=== PATIENT | female | born 1940 | race Caucasian/White ===

== ENCOUNTER 2018-01-28 10:15 | Outpatient (CLI) | payer MEDICARE ==
--- NOTE | 2018-01-28 13:36 | RAD ---
RADIOGRAPH RIGHT SHOULDER THREE VIEWS: 01/28/2018 HISTORY: A 77-year-old female with M25.511, right shoulder pain, unspecified chronicity. COMPARISON: None. FINDINGS: Mild to moderate DJD at the AC joint and the glenohumeral joint. No dislocation or subluxation. Minong ral head contour is maintained. An approximately 2 x 0.5 cm focus of faint of calcific attenuation a t the acromiohumeral interval. There is a cluster of surgical clips at the right axilla. IMPRESSION: 1. Mild osteoarthrosis. 2. Broad, faint, patchy soft tissue calcification at the acromiohumeral interval. This could either represent HADD (hydroxyapatite deposition disease) or CPPD (calcium pyrophosphate crystal deposition disease). POS: [facility]
--- NOTE | 2018-01-28 13:42 | RAD ---
THREE VIEWS CERVICAL SPINE: INDICATIONS: Radiculopathy. FINDINGS: There is multilevel disk degenerative facet osteoarthritic change. No acute fracture or subluxation is grossly evident. There is mild anterior translation of C3 on C4, with flexion that reduces in the neutral and extension positioning. No additional abnormal translational motion is evident. IMPRESSION: 1. Mild abnormal translational motion at C3-C4. 2. Mild to moderate multilevel spondylosis of the cervical spine. POS: [facility]
--- NOTE | 2018-01-28 14:28 | MRI ---
MRI CERVICAL SPINE NONCONTRAST: 01/28/2018 HISTORY: A 77-year-old female with M54.12, radiculopathy of the cervical region. Cervicalgia radiating the right upper extremity. COMPARISON: None. FINDINGS: No Chiari I malformation. Normal size and signal of cervical spinal cord. No syrinx. Vertebral bod y heights are maintained. Bilateral degenerative facet changes, mild and moderate. The worst levels are on the left, at C4-C5 and at C5-C6, followed by left C7-T1. Disk space narrowing is moderate to severe at C4-C5, moderate at C5-C6, and mild at other levels. Mild degenerative endplate marrow elissa nges, modic type II, at C6-C7. C1-C2: No severe central stenosis. Mild degenerative pseudopannus posterior to the odontoid process , minimally posteriorly deflects the cervicomedullary junction. C2-C3: No significant central stenosis. Mild to moderate right neural foraminal stenosis. No left- sided neural foraminal stenosis. C3-C4: Thickened ligamentum flavum abuts the dorsal surface of the spinal cord. Mild broad-based di sk-osteophytic bar complex. Mild central spinal canal stenosis. Mild bilateral neural foraminal ivet nosis. C4-C5: Broad-based disk-osteophytic bar complex abuts the ventral surface of the spinal cord. Thick ened ligamentum flavum. Moderate central spinal canal stenosis. Bilateral uncinate process osteophy lico. Somewhat severe right neural foraminal stenosis. Moderate to severe left neural foraminal sten osis. C5-C6: Shallow broad-based disk osteophytic bar complex, plus a superimposed tiny central component. Little or no central spinal canal stenosis. Bilateral uncinate process osteophytes. Mild to moder ate right neural foraminal stenosis. Mild left neural foraminal stenosis. C6-C7: Broad-based disk-osteophytic bar complex. Superimposed right paracentral small focal disk-os teophyte complex or disk herniation. Mild central spinal canal stenosis. Small bilateral uncinate p rocess osteophytes. Mild bilateral neural foraminal stenosis, right greater than left. C7-T1: Mildly thickened ligamentum flavum. Minimal broad-based disk- osteophytic bar complex. Mild central spinal canal stenosis. Moderate bilateral neural foraminal stenosis, left greater than righ t. IMPRESSION: 1. Cervical spondylosis, with varying degrees of degenerative disk disease (mild and moderate) and v arying degrees of facet osteoarthrosis (asymmetrically greater on the left than the right). 2. Varying degrees of bilateral neural foraminal stenosis, including moderately severe. 3. No severe central spinal canal stenosis at any level. POS: [facility]
== END 2018-01-28 10:16 | disposition home or self-care (01) ==
LOC: TBSIIMAG 10:15
PROVIDERS: ATTEND Nurse Practitioner Family
DX: M47.22 Other spondylosis with radiculopathy, cervical region (principal); M25.511 Pain in right shoulder; M19.011 Primary osteoarthritis, right shoulder; M99.81 Other biomechanical lesions of cervical region
CPT/HCPCS: 72040; 72141

== ENCOUNTER 2018-03-19 12:35 | Outpatient (CLI) | payer MEDICARE ==
--- NOTE | 2018-03-19 20:28 | EKG ---
Test Reason : Blood Pressure : / mmHG Vent. Rate : 065 BPM Atrial Rate : 065 BPM P-R Int : 174 ms QRS Dur : 074 ms QT Int : 402 ms P-R-T Axes : 057 048 047 degrees QTc Int : 418 ms Normal sinus rhythm Normal ECG When compared with ECG of 15-NOV-2007 15:07, No significant change was found Confirmed by DONALD GARCIA ([id number]) on 03/19/2018 8:28:00 PM Referred By: NITISH Confirmed By:DONALD GARCIA
== END 2018-03-19 12:36 | disposition home or self-care (01) ==
LOC: LABBT 12:35
PROVIDERS: ATTEND Neurological Surgery
DX: Z01.818 Encounter for other preprocedural examination (principal); M54.12 Radiculopathy, cervical region
CPT/HCPCS: 93005; 93010

== ENCOUNTER 2018-03-24 07:11 | Day surgery (SDC) | payer MEDICARE ==
[2018-03-19 13:07] VITALS: BMI 22.8
--- NOTE | 2018-03-24 07:49 | HP ---
HISTORY OF PRESENT ILLNESS: Ms. Olivera is a very pleasant woman, presenting by referral from Dr. Michel koroma's office for evaluation of right-sided C6 as well as C7 radiculopathy, she has had since Jul of this past year. This has also been treated with chiropractics, this ultimately then intens ified again in October and has been persistent since that time. She also has tingling and numbness over the same distributions. She denies any significant weakness that is noticeable, but does have r estricted range of motion to the right and her cervical spine which is pain limiting nature. All thi s is in the setting of an MRI performed at [facility] that reveals bilateral neuroforaminal narrowing mostly in the right at C5-C6 and C6-C7 which I feel match her symptoms rather well. She would like to pursue surgery at this time if possible. PAST MEDICAL HISTORY: Significant for breast carcinoma, hypertension. CURRENT MEDICATIONS: Ativan, metoprolol, aspirin, Viberzi, Zantac, Benadryl. ALLERGIES: CODEINE. PAST SURGICAL HISTORY: Hysterectomy, breast lumpectomy, unspecified back surgery. PHYSICAL EXAMINATION: The patient does display restricted range of motion to the right in her cervic al spine. She is not limited to the left. She has good motor function in the bilateral upper extrem ities with 5/5 strength in all motor movements of the bilateral upper extremities. She has equal and present biceps tendon reflexes bilaterally. There is no sensory disturbance that I can discern. ASSESSMENT: Cervical radiculopathy. PLAN: Dr. Simpson met with the patient, reviewed imaging and ultimately advocated for a C5 through C7 ACDF. He explained to the patient the risks, benefits, and alternatives to the procedure. The patie nt expressed understanding and would like to move forward with surgery as discussed. I do believe th e patient is mentally competent and capable of making medical decisions for herself. We will move fo rward with surgery as planned. Arnaldo Lofton PA-C dictating for Dr. Simpson.
[2018-03-24] MEDS ORDERED: CEFAZOLIN/Water 2 GM/20 ML SYRINGE ONE ×2 (07:52→13:58)
[2018-03-24] MEDS ORDERED: Scopolamine 1.5 mg/72 hour Patch ONE (07:52)
[2018-03-24] MEDS ORDERED: Midazolam HCl 2 mg/2 ml Vial ONE (09:27)
[2018-03-24] MEDS ORDERED: Thrombin 5000 UNITS/5 ML VIAL ONE (09:31)
[2018-03-24] MEDS ORDERED: Fentanyl 100 MCG/2 ML VIAL ONE ×2 (09:33→11:37)
[2018-03-24] MEDS ORDERED: PHENYLEPHRINE-NS 100 MCG/ML 10 ML SYRINGE ONE (10:40)
[2018-03-24] MEDS ORDERED: Esmolol 100 MG/10 ML VIAL ONE (10:40)
[2018-03-24] MEDS ORDERED: Ondansetron HCl/PF 4 MG/2 ML Vial ONE (10:40)
[2018-03-24] MEDS ORDERED: PROPOFOL 200 MG/20 ML VIAL ONE (10:40)
[2018-03-24] MEDS ORDERED: Lidocaine 1% PF 5 ML VIAL ONE (10:40)
[2018-03-24] MEDS ORDERED: Dexamethasone 20 MG/5 ML VIAL ONE (10:40)
[2018-03-24] MEDS ORDERED: Promethazine HCl 25 MG/ML VIAL ONE (12:24)
--- NOTE | 2018-03-24 12:27 | OP ---
DATE OF PROCEDURE: 03/24/2018 SURGEON: Arthur Simpson M.D. PLANT ASSOCIATE: Arnaldo Lofton PA-C INDICATION: Pain. DIAGNOSIS: Cervical radiculopathy. PROCEDURE PERFORMED: Anterior cervical discectomy and fusion C5-C7. ANESTHESIA: General. TECHNIQUE: The patient was brought into the operating room and placed on general anesthesia. She wa s placed on the table in supine position. A transverse incision was planned over the lateral aspect of the neck on the right. After prepping and draping and after an appropriate operative pause, the i ncision was created. The underlying platysma muscle was incised. A blunt tissue plane anterior to t he sternocleidomastoid muscle was used to gain access to the prevertebral space. Self-retaining retr actors were placed in the wound for optimal exposure. After confirming the appropriate level, serum fluoroscopy and annulotomy was performed at the C6-7 disk space. All disk material as well as anteri or and posterior osteophytes were removed. After complete decompression, a 6 mm lordotic PEEK cage p acked with allograft and autograft material was placed in the interbody space. We then redirected ou r attention to the level above at C5-6 where again an annulotomy was performed. All disk material as well as anterior and posterior osteophytes were removed. After complete decompression, a 5 mm lordo tic PEEK cage packed with allograft and autograft material was placed in the interbody space. An ant erior cervical plate was then fashioned to the front of the spine and secured with a total of 6 screw s. Midline and lateral structures were inspected and found to be free from significant trauma. The wound was irrigated. Hemostasis was maintained throughout. The wound was then closed in anatomic la yers and a pressure dressing was applied. There were no known procedural complications.
[2018-03-24] MEDS ORDERED: Cepastat Lozenges 1 LOZ PO ONE (14:15)
== END 2018-03-24 14:45 | disposition home or self-care (01) ==
LOC: SDC 07:11
PROVIDERS: ATTEND Neurological Surgery
PROC: 0RG20A0 Fusion of 2 or more Cervical Vertebral Joints with Interbody Fusion Device, Anterior Approach, Anterior Column, Open Approach (ICD-10-PCS; principal; 2018-03-24)
DX: M54.12 Radiculopathy, cervical region (principal); I10 Essential (primary) hypertension; Z79.82 Long term (current) use of aspirin; Z79.899 Other long term (current) drug therapy; Z98.890 Other specified postprocedural states; Z88.5 Allergy status to narcotic agent
CPT/HCPCS: 20930; 20936; 22551; 22552; 22853 ×2; 76001; 96374 ×2; C1713; C1776; J1100; J2001; J2250; J2405; J2550; J2704; J3010

== ENCOUNTER 2018-05-15 10:33 | Outpatient (CLI) | payer MEDICARE ==
--- NOTE | 2018-05-15 13:15 | RAD ---
THREE VIEWS CERVICAL SPINE: Indication: Post-operative cervical spine with radiculopathy and neck pain. Comparison: 01-28-18 FINDINGS: Since the comparison study there has been interval performance of an ACDF spanning C5 through C7. The ACDF plate and interbody cages project in the expected position. Spinal alignment is preserved. Ther e is slight anterior translation of C7 on T1, stable. Prevertebral soft tissues are within normal santos its. The lateral masses are symmetric. IMPRESSION: 1. Post-operative cervical spine. 2. Stable slight anterior translation of C7 on T1. POS: [facility]
== END 2018-05-15 10:34 | disposition home or self-care (01) ==
LOC: TBSIIMAG 10:33
PROVIDERS: ATTEND Neurological Surgery
DX: M54.12 Radiculopathy, cervical region (principal); Z98.1 Arthrodesis status
CPT/HCPCS: 72040

== ENCOUNTER 2018-08-05 10:19 | Outpatient (CLI) | payer MEDICARE | END 2018-08-05 10:20 | disposition home or self-care (01) | LOC: BICMAMMO 10:19 | PROVIDERS: ATTEND Family Medicine | DX: Z12.31 Encounter for screening mammogram for malignant neoplasm of breast (principal); Z85.3 Personal history of malignant neoplasm of breast | CPT/HCPCS: 77063; 77067 ==

== ENCOUNTER 2018-08-12 12:51 | Outpatient (CLI) | payer MEDICARE ==
--- NOTE | 2018-08-12 14:43 | RAD ---
RIGHT SHOULDER THREE VIEWS: History: Right shoulder pain. FINDINGS: The bones are demineralized. There are arthritic changes of the AC and glenohumeral joints and a suba cromial spur. Surgical clips are seen in the right axilla. IMPRESSION: Arthritic changes of the shoulder with a fairly prominent subacromial spur. POS: [facility]
--- NOTE | 2018-08-12 15:49 | CT ---
NONCONTRAST CT CERVICAL SPINE: Date: 08/12/18 HISTORY: Right shoulder pain and neck pain. TECHNIQUE: Contiguous axial CT images are obtained through the cervical spine from the skull base to the level o f the T3 vertebral body. Sagittal and coronal reformatted images are provided. FINDINGS: Postsurgical changes related to anterior cervical fusion are noted. Anterior plate and screws transfi x the C5-6 and C6-7 levels with intradiscal prosthesis present at these levels. There are scattered f acet degenerative changes seen within the cervical spine. There is mild posterior osteophyte formatio n seen at the C6-7 level. However, there is no significant narrowing of the central spinal canal or l eft neural foramen. There is mild right-sided neural foraminal narrowing due to bony encroachment. At the C4-5 level, there is mild facet hypertrophic changes and posterior osteophyte formation which does result in effacement of the ventral subarachnoid space and mild bilateral neural foraminal narro wing. Remaining levels of the cervical spine demonstrate no significant bony encroachment on the cent ral spinal canal or neural foramina. There is biapical pleural and parenchymal scarring present. Prevertebral soft tissues are within normal limits. Vascular calcifications are seen in the carotid arteries. Prevertebral soft tissues are within normal limits. Calcifications seen in the region of the palatine tonsils bilaterally, likely related to prior inflammatory process. IMPRESSION: 1. Postsurgical changes cervical spine with anterior fusion of C5-C7 levels. Mild degenerative sales es are seen at the C4-5 level and at the C6-7 level as described above. 2. No fracture or subluxation involving the cervical spine. POS: [facility]
== END 2018-08-12 12:52 | disposition home or self-care (01) ==
LOC: TBSIIMAG 12:51
PROVIDERS: ATTEND Neurological Surgery
DX: M47.22 Other spondylosis with radiculopathy, cervical region (principal); M25.511 Pain in right shoulder; M99.81 Other biomechanical lesions of cervical region; M25.78 Osteophyte, vertebrae; M13.811 Other specified arthritis, right shoulder; M75.91 Shoulder lesion, unspecified, right shoulder; Z98.1 Arthrodesis status
CPT/HCPCS: 72125

== ENCOUNTER 2019-05-06 09:48 | Observation (INO) | payer MEDICARE ==
[2019-05-06 10:35] LABS: #Basophils 0.1 thou/uL (0.0-0.2); #Monocytes 0.7 thou/uL (0.11-0.59); #Neutrophils 8.7 thou/uL (1.40-6.50); %Basophils 0.5 % (0.0-1.0); %Eosinophils 0.3 % (0.0-10.0); %Lymphocytes 9.1 % (21.0-51.0); %Monocytes 6.7 % (0.0-10.0); %Neutrophils 83.3 % (42.0-75.0); Hemoglobin 13.5 g/dL (12.0-16.0); Mean Corpuscular HGB CONC 32.9 g/dL (32.0-36.0); Mean Corpuscular Hemoglobin 29.8 pg (27.0-31.0); Mean Corpuscular Volume 90.6 fL (78.0-98.0); Mean Platelet Volume 6.8 fL (7.4-10.4); Platelet Count 251 thou/uL (130-400); RBC Distribution Width 11.7 % (11.5-14.5); Red Blood Cell (RBC) Count 4.51 mill/uL (4.20-5.40); White Blood Cell (WBC) Count 10.5 thou/uL (4.8-10.8)
[2019-05-06 10:58] LABS: ALT (SGPT) 15 U/L (8-55); AST (SGOT) 17 U/L (5-34); Albumin 4.4 g/dL (3.4-4.8); Alkaline Phosphatase 70 U/L (40-150); Anion Gap 12 mmol/L (10-20); BUN (Urea Nitrogen) 8 mg/dL (9.8-20.1); Bilirubin, Total 0.7 mg/dL (0.2-1.2); Calc. Creatinine Clearance 0 mL/min (70-130); Calcium 9.7 mg/dL (7.8-10.44); Carbon Dioxide 29 mmol/L (23-31); Chloride 100 mmol/L (98-107); Estimated GFR-MDRD 68; Globulin 3.7 g/dL (2.4-3.5); Glucose 108 mg/dL (83-110); Potassium 3.8 mmol/L (3.5-5.1); Protein, Total 8.1 g/dL (6.0-8.3); Sodium 137 mmol/L (136-145)
[2019-05-06] MEDS ORDERED: metroNIDAZOLE 500 MG/100 ML BAG ONE (11:59)
--- NOTE | 2019-05-06 12:01 | CT ---
ABDOMEN CT WITH CONTRAST PELVIC CT WITH CONTRAST: Date: 05/06/19 HISTORY: Breast cancer. Hysterectomy. Abdominal pain. COMPARISON: 01/29/19. TECHNIQUE: Abdomen and pelvis CT performed with IV contrast. Enteric contrast not administered. FINDINGS: ABDOMEN CT: Lung bases are clear. Heart size is normal. No significant pericardial fluid. The descending thoracic aorta and abdominal a etta demonstrate atherosclerosis. No aneurysm. Gallbladder is unremarkable. Liver, spleen, pancreas, and adrenal glands have appropriate attenuation and enhancement. No gastrohepatic, retrocrural, or periportal lymphadenopathy. No mesenteric mass, lymphadenopathy, or free air. Symmetric enhancement of the kidneys. Bilaterally, no obstructive uropathy. Limited evaluation of the alimentary canal by lack of oral contrast. Gastric mucosa, duodenum, and multiple normal caliber small bowel loops are identified. Ileocecal willian ction is normal. Normal caliber appendix. There is long segment mucosal thickening involving the desc ending colon and sigmoid colon. Correlate for an infectious inflammatory process. Diverticula are not ed. However, diverticulitis is less favored given the long segment of inflammatory change. Ischemic b owel is a consideration, though less favored given what would be involvement of the SMA as well as th e BERRY distribution. CT PELVIS: Hysterectomy changes. No pelvic mass, lymphadenopathy, free air, or free fluid. Urinary bladder is unremarkable. No lytic or blastic lesions in the osseous structures. IMPRESSION: Long segment mucosal thickening involving the majority of the left hemicolon. Distribution favors an infectious or inflammatory process. Though there are diverticula, diverticulitis is less favored give n long segment distribution. As a conservative measure, follow-up colonoscopy is recommended once aga in inflammation resolves. POS: [facility]
[2019-05-06 13:40] VITALS: BMI 23.5
[2019-05-06] MEDS ORDERED: Ondansetron PF 4 MG/2 ML Vial IVP PRN (13:51)
[2019-05-06] MEDS ORDERED: Ondansetron ODT 4 MG TAB PO PRN (13:51)
[2019-05-06] MEDS ORDERED: Loperamide HCl 2 MG CAP PO PRN (13:51)
[2019-05-06] MEDS: Sodium Chloride 0.9% 1,000 ML IV SCH (14:16)
[2019-05-06 15:58] LABS: Hemoglobin 13.7 g/dL (12.0-16.0); Platelet Count 222 thou/uL (130-400)
[2019-05-06] MEDS: Acetaminophen 325 MG TAB PO PRN (16:33)
[2019-05-06] MEDS ORDERED: metroNIDAZOLE 500 MG in Premix Bag 1 BAG IVPB SCH (20:00)
[2019-05-06] MEDS: Lorazepam 0.5 MG TAB PO SCH (21:04)
[2019-05-07] MEDS: Acetaminophen 325 MG TAB PO PRN ×2 (01:01→22:28)
[2019-05-07] MEDS: Sodium Chloride 0.9% 1,000 ML IV SCH (01:03)
[2019-05-07 05:52] LABS: #Lymphocytes 1.2 thou/uL (1.20-3.40); #Monocytes 0.8 thou/uL (0.11-0.59); #Neutrophils 8.6 thou/uL (1.40-6.50); %Basophils 0.1 % (0.0-1.0); %Eosinophils 0.4 % (0.0-10.0); %Monocytes 7.5 % (0.0-10.0); %Neutrophils 81.1 % (42.0-75.0); Hemoglobin 11.8 g/dL (12.0-16.0); Mean Corpuscular HGB CONC 33.2 g/dL (32.0-36.0); Mean Corpuscular Hemoglobin 30.6 pg (27.0-31.0); Mean Corpuscular Volume 92.1 fL (78.0-98.0); Platelet Count 206 thou/uL (130-400); RBC Distribution Width 11.7 % (11.5-14.5); Red Blood Cell (RBC) Count 3.87 mill/uL (4.20-5.40); White Blood Cell (WBC) Count 10.6 thou/uL (4.8-10.8)
[2019-05-07 06:09] LABS: Anion Gap 12 mmol/L (10-20); BUN (Urea Nitrogen) 5 mg/dL (9.8-20.1); Calc. Creatinine Clearance 70 mL/min (70-130); Calcium 8.7 mg/dL (7.8-10.44); Carbon Dioxide 21 mmol/L (23-31); Chloride 106 mmol/L (98-107); Estimated GFR-MDRD 88; Glucose 99 mg/dL (83-110); Potassium 3.4 mmol/L (3.5-5.1); Sodium 136 mmol/L (136-145)
[2019-05-07] MEDS: Bupropion 150 MG XL TAB PO SCH (08:47)
[2019-05-07] MEDS ORDERED: Zolpidem Tartrate 5 MG TAB PO PRN (09:30)
--- NOTE | 2019-05-07 10:04 | PRG ---
DATE OF SERVICE: 05/07/2019 SUBJECTIVE: Ms. Olivera is feeling better. She is having less abdominal pain. No further blood per bowel movement is noted, although she still noted some slight nausea at times. OBJECTIVE: VITAL SIGNS: Temperature 98.1, blood pressure 130/64. LUNGS: Clear. HEART: Reveals no murmur. ABDOMEN: Soft. There is still some left lower quadrant tenderness without rebound or guarding noted. LABORATORY DATA: Hemoglobin is 11.8, hematocrit 35.7, and white blood count 10.6. Sodium 136, potassium 3.4, chloride 106, CO2 of 21, and BUN 6.5. IMPRESSION: Lower gastrointestinal bleed probably secondary to diverticulitis of the colon. PLAN: We will Hep-Lock IV. We will advance diet to regular diet. I do not see need for colonoscopy, but would like to keep one more day for further IV antibiotic therapy. Job ID: [id number]
[2019-05-07] MEDS: Lorazepam 0.5 MG TAB PO SCH (21:04)
[2019-05-08 05:15] LABS: #Eosinphils 0.1 thou/uL (0.0-0.7); #Lymphocytes 1.4 thou/uL (1.20-3.40); #Monocytes 0.8 thou/uL (0.11-0.59); #Neutrophils 5.7 thou/uL (1.40-6.50); %Basophils 0.5 % (0.0-1.0); %Eosinophils 1.6 % (0.0-10.0); %Monocytes 9.5 % (0.0-10.0); %Neutrophils 70.5 % (42.0-75.0); Hemoglobin 12.5 g/dL (12.0-16.0); Mean Corpuscular HGB CONC 34.2 g/dL (32.0-36.0); Mean Corpuscular Hemoglobin 30.9 pg (27.0-31.0); Mean Corpuscular Volume 90.4 fL (78.0-98.0); Mean Platelet Volume 6.7 fL (7.4-10.4); Platelet Count 234 thou/uL (130-400); RBC Distribution Width 11.7 % (11.5-14.5); Red Blood Cell (RBC) Count 4.03 mill/uL (4.20-5.40)
[2019-05-08 07:44] VITALS: BP 160/75; TEMP 98.4
--- NOTE | 2019-05-08 08:14 | HP ---
HISTORY OF PRESENT ILLNESS: The patient is an 78-year-old female who presented to the emergency room complaining of lower abdominal pain associated with rectal bleeding. She has been these symptoms now since last night. There has been no nausea, vomiting. No fever has been noted. She has noted bleeding that she says it has become a little bit more profuse bleeding over the last 8 hours. She has noted some lower abdominal pain, some looseness to her bowel movement. No trauma has been noted. Otherwise, she has been resting comfortably. She underwent CT scan of the abdomen here at the hospital. CT scan of the abdomen reveals some inflammatory changes involving the descending colon, sigmoid colon. She does have a history of diverticular disease of the colon although it appears that this is not related to diverticulitis. She has been resting comfortably, otherwise. She has no prior history of significant bowel issues. Her last colonoscopy was done in 2013, which did reveal diverticular disease of the colon and polyps. Otherwise, no other medical complaints are noted. ALLERGIES: SHE IS ALLERGIC TO CODEINE. PAST SURGICAL HISTORY: Positive for hysterectomy and lumpectomy. MEDICAL HISTORY: Significant for breast cancer, hypertension, irritable bowel disease. CURRENT MEDICATIONS: 1. Aspirin 81 mg daily. 2. Bupropion 150 mg daily. 3. Vitamin E 400 units daily. 4. Lactobacillus one capsule daily. 5. B12 2500 mcg daily. 6. Vitamin D3 4000 units daily. 7. Vitamin C 1000 mg daily. 8. Metoprolol 12.5 mg p.o. q.a.m. 9. Lorazepam 1 mg at bedtime. 10. Viberzi 75 mg as needed for irritable bowel syndrome. SOCIAL/PERSONAL HISTORY: She is a . She does not smoke and does not drink alcohol. She has recently been going through some tougher time with recent of a son. REVIEW OF SYSTEMS: GI: Positive as above. : Negative. CARDIOVASCULAR: Otherwise negative. NEUROLOGIC: Otherwise negative. PHYSICAL EXAMINATION: VITAL SIGNS: Temperature 98.0, pulse 86, respirations 16, O2 saturation 96%, BP 129/62. GENERAL: She is alert and active, in no acute distress. NECK: Supple. Full range of motion. No masses. No bruits auscultated. Thyroid, midline without thyromegaly or thyroid masses. LUNGS: Clear. HEART: Reveals a regular rate and rhythm. No murmurs, gallops, or rubs. ABDOMEN: Soft. There is some left lower quadrant tenderness without rebound or guarding. The bowel sounds are present and active. No hepatosplenomegaly is noted. EXTREMITIES: No clubbing, edema, or cyanosis noted. LABORATORY DATA: Her white blood count is 10.5, hemoglobin 13.5, hematocrit 40.9. Sodium 137, potassium 3.8, chloride 100, CO2 of 29, BUN 8, creatinine 0.81. CT scan is noted in the body of the report. There is some inflammation in the descending area of the colon, unsure that represents diverticulitis inflammation, possible ischemic bowel. IMPRESSION: An 78-year-old female with rectal bleeding, possibly secondary to colonic inflammation, possibly represent diverticulitis versus ischemic bowel. Doubt ischemic bowel due to minimal symptoms she is having seem to be more consistent with inflammation related diverticular disease of colon. PLAN: The patient has been placed in observation. She will receive IV Levaquin, IV Flagyl. She has already done in the ER. We will get serial H and Hs. If needed, we will get GI consult. I do not think we will need it at this time. The patient has been informed of the findings and need for observation. Job ID: [id number]
[2019-05-08] MEDS: Bupropion 150 MG XL TAB PO SCH (09:00)
--- NOTE | 2019-05-08 10:36 | PRG ---
DATE OF SERVICE: 05/08/2019 SUBJECTIVE: Ms. Olivera is feeling much better. She has less pain. She has had no further bleeding per rectum. OBJECTIVE: VITAL SIGNS: BP 134/63, temperature 98.7, pulse 90, and O2 saturations 95%. ABDOMEN: Soft. There is minimal tenderness noted in left lower quadrant area. No rebound or guarding. LABORATORY DATA: Her hemoglobin is 12.5 and hematocrit 36.5. IMPRESSION: Lower gastrointestinal bleed probably secondary to diverticulitis/colitis. PLAN: Discharged home on Levaquin and Flagyl today. Follow up with me in 1 week. Job ID: [id number]
--- NOTE | 2019-05-08 12:21 | DIS ---
DATE OF ADMISSION: 05/06/2019 DATE OF DISCHARGE: 05/08/2019 DISCHARGE DIAGNOSES: 1. Lower gastrointestinal bleeding. 2. Diverticulitis. HOSPITAL SUMMARY: The patient is an 78-year-old female, who presented to the emergency room with lower abdominal pain associated with some left lower quadrant pain and rectal bleeding. She was seen and evaluated in the ER. Abdominopelvic CT scan revealed some inflammation of her lower intestinal wall. This was possibly related to diverticulitis versus ischemic bowel. The patient was subsequently admitted to the hospital and given on IV antibiotics for diverticular disease of colon. Serial H and H's were done. She had no significant further bleeding noted. Tolerating all p.o. intake. By 05/08/2019, she was doing well. She was able to be discharged home on her home medicines. In addition, she will be placed on Levaquin 500 mg daily and metronidazole 500 mg b.i.d. She will follow up in 1 week. Job ID: [id number]
--- NOTE | 2019-05-10 01:07 | EKG ---
Test Reason : Blood Pressure : / mmHG Vent. Rate : 082 BPM Atrial Rate : 082 BPM P-R Int : 164 ms QRS Dur : 074 ms QT Int : 392 ms P-R-T Axes : 056 036 043 degrees QTc Int : 457 ms Normal sinus rhythm Nonspecific ST abnormality Abnormal ECG Confirmed by ELEUTERIO SAMAYOA ([id number]), editor sound MERE SERRATO ([id number]) on 05/10/2019 1:06:45 AM Referred By: Confirmed By:ELEUTERIO SAMAYOA
== END 2019-05-08 09:00 | disposition home or self-care (01) ==
LOC: ERS 09:48 → 2SW 13:35
PROVIDERS: ADMIT Family Medicine; ATTEND Family Medicine
DX: K57.33 Diverticulitis of large intestine without perforation or abscess with bleeding (principal); I10 Essential (primary) hypertension; K58.9 Irritable bowel syndrome, unspecified; Z88.5 Allergy status to narcotic agent; Z79.82 Long term (current) use of aspirin; Z79.899 Other long term (current) drug therapy
CPT/HCPCS: 74177; 80048; 80053; 85014; 85018; 85025 ×3; 85049; 86850; 86900; 86901; 93005; 96361 ×2; 96365; 96366 ×2; 96367; 99285; G0378 ×2; 36415; J1956

== ENCOUNTER 2019-08-06 08:37 | Outpatient (CLI) | payer MEDICARE ==
--- NOTE | 2019-08-06 09:19 | ULT ---
US Gallbladder RUQ: 08/06/2019 12:00 AM CLINICAL HISTORY: Epigastric abdominal pain. STUDY: Limited right upper quadrant ultrasound of abdomen. COMPARISON: 11/16/2007 FINDINGS: Liver: Size: Normal. Echogenicity: Normal. Contour: Smooth. Mass: None. Bile ducts: No intrahepatic or extrahepatic biliary dilatation. Common bile duct measures 3 mm. Gallbladder: Cholelithiasis. Pancreas: Head, body, and tail appear normal. Right kidney: No pelvicalyceal dilatation. Right kidney measuring 8.5 cm in length. IMPRESSION: Cholelithiasis
== END 2019-08-06 08:38 | disposition home or self-care (01) ==
LOC: ULT 08:37
PROVIDERS: ATTEND Family Medicine
DX: R10.13 Epigastric pain (principal); K80.20 Calculus of gallbladder without cholecystitis without obstruction
CPT/HCPCS: 76705

== ENCOUNTER 2019-08-18 12:03 | Outpatient (CLI) | payer MEDICARE ==
[2019-08-18 13:40] LABS: #Eosinphils 0.1 thou/uL (0.0-0.7); #Lymphocytes 1.1 thou/uL (1.20-3.40); #Monocytes 0.5 thou/uL (0.11-0.59); #Neutrophils 4.2 thou/uL (1.40-6.50); %Basophils 0.2 % (0.0-1.0); %Eosinophils 0.9 % (0.0-10.0); %Lymphocytes 18.4 % (21.0-51.0); %Monocytes 8.5 % (0.0-10.0); Mean Corpuscular Hemoglobin 31.2 pg (27.0-31.0); Mean Corpuscular Volume 91.8 fL (78.0-98.0); Platelet Count 273 thou/uL (130-400); RBC Distribution Width 11.4 % (11.5-14.5); Red Blood Cell (RBC) Count 4.17 mill/uL (4.20-5.40); White Blood Cell (WBC) Count 5.8 thou/uL (4.8-10.8)
[2019-08-18 14:03] LABS: ALT (SGPT) 12 U/L (8-55); AST (SGOT) 18 U/L (5-34); Albumin 4.2 g/dL (3.4-4.8); Alkaline Phosphatase 62 U/L (40-110); Anion Gap 14 mmol/L (10-20); BUN (Urea Nitrogen) 15 mg/dL (9.8-20.1); Bilirubin, Direct 0.1 mg/dL (0.1-0.3); Bilirubin, Total 0.3 mg/dL (0.2-1.2); Calc. Creatinine Clearance 0 mL/min (70-130); Calcium 9.4 mg/dL (7.8-10.44); Carbon Dioxide 25 mmol/L (23-31); Chloride 101 mmol/L (98-107); Estimated GFR-MDRD 64; Glucose 93 mg/dL (83-110); Potassium 3.7 mmol/L (3.5-5.1); Protein, Total 7.9 g/dL (6.0-8.3); Sodium 136 mmol/L (136-145)
== END 2019-08-18 12:04 | disposition home or self-care (01) ==
LOC: LABBT 12:03
PROVIDERS: ATTEND Surgery
DX: Z01.818 Encounter for other preprocedural examination (principal); K80.80 Other cholelithiasis without obstruction
CPT/HCPCS: 80048; 80076; 85025; 93005; 93010

== ENCOUNTER 2019-08-25 13:15 | Outpatient (CLI) | payer MEDICARE ==
--- NOTE | 2019-08-25 14:46 | MMO ---
Bilateral MAMMO Bilat Screen [facility]. CLINICAL HISTORY: Patient is 78 years old and is seen for screening. The patient has no family history of breast cancer. 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 VIEWS: The views performed were: bilateral craniocaudal with tomosynthesis and bilateral mediolateral oblique with tomosynthesis. FILMS COMPARED: The present examination has been compared to prior imaging studies performed at [facility] on 06/17/2015, 07/05/2016, 07/31/2017 and 08/05/2018. This study has been interpreted with the assistance of computer-aided detection. MAMMOGRAM FINDINGS: There are scattered fibroglandular densities. There are stable benign appearing calcifications seen in both breasts. There are no suspicious masses, suspicious calcifications, or new areas of architectural distortion. IMPRESSION: THERE IS NO MAMMOGRAPHIC EVIDENCE OF MALIGNANCY. A ROUTINE FOLLOW-UP MAMMOGRAM IN 1 YEAR IS RECOMMENDED. THE RESULTS OF THIS EXAM WERE SENT TO THE PATIENT. ACR BI-RADS Category 2 - Benign finding MAMMOGRAPHY NOTE: 1. A negative mammogram report should not delay a biopsy if a dominant of clinically suspicious mass is present. 2. Approximately 10% to 15% of breast cancers are not detected by mammography. 3. Adenosis and dense breasts may obscure an underlying neoplasm. Reported by: JESSICA MORENO MD Electonically Signed: [id number]
== END 2019-08-25 13:16 | disposition home or self-care (01) ==
LOC: BICMAMMO 13:15
PROVIDERS: ATTEND Family Medicine
DX: Z12.31 Encounter for screening mammogram for malignant neoplasm of breast (principal); Z98.890 Other specified postprocedural states
CPT/HCPCS: 77063; 77067

== ENCOUNTER 2019-08-27 07:05 | Day surgery (SDC) | payer MEDICARE ==
[2019-08-18 12:29] VITALS: BMI 22.1
[2019-08-27] MEDS ORDERED: Bupivacaine/Epinephrine 0.25% 30 ML VIAL ONE (08:05)
[2019-08-27] MEDS ORDERED: Scopolamine 1.5 mg/72 hour Patch ONE (08:20)
[2019-08-27] MEDS ORDERED: Fentanyl 100 MCG/2 ML VIAL ONE ×2 (08:27→09:50)
[2019-08-27] MEDS ORDERED: Ondansetron PF 4 MG/2 ML Vial ONE (09:51)
[2019-08-27] MEDS ORDERED: Acetaminophen 500 MG TAB ONE (11:01)
--- NOTE | 2019-08-27 15:04 | OP ---
DATE OF PROCEDURE: 08/27/2019 PREOPERATIVE DIAGNOSIS: Symptomatic gallstones. POSTOPERATIVE DIAGNOSIS: Symptomatic gallstones. PROCEDURE PERFORMED: Laparoscopic cholecystectomy. ANESTHESIA: General. ESTIMATED BLOOD LOSS: Minimal. COMPLICATIONS: None. SPECIMEN: Gallbladder. FINDINGS: Chronic cholecystitis. PROCEDURE IN DETAIL: The patient was taken to the operating room and laid supine on the operating room table. After general anesthetic was obtained, the abdomen was prepped and draped in a sterile fashion. A curved incision was made below the umbilicus. Cautery was used to dissect down to the umbilical fascia. Umbilical fascia was incised and held up using a Zeynep. The abdominal cavity was entered using a Beata clamp. Holding stitch of Vicryl was placed on each side of the fascia. Black trocar was placed. High-flow pneumoperitoneum was obtained. An upper midline 5 mm port and 2 right upper quadrant 5 mm ports were placed under direct camera visualization. The gallbladder was retracted from the gallbladder fossa. The peritoneum of the gallbladder was opened anteriorly and posteriorly. The critical view triangle was seen showing only the cystic duct and cystic artery branching from medial to lateral. There were no other branching structures. Two clips were placed proximally on the cystic duct and one laterally. It was cut using laparoscopic scissors. The cystic artery was taken in the same way. Electrocautery was then used to dissect the gallbladder out of the gallbladder fossa. The gallbladder was placed in an Endo catch bag and brought out through the Black. There was no bleeding or bile in the liver bed. The cystic duct stump and cystic artery stump were intact, without evidence of extravasation or bleeding. All port sites were infiltrated using local anesthesia. All ports were removed under camera visualization. Pneumoperitoneum was let down. The Vicryl was used to close the fascial defect below the umbilicus. All incisions were irrigated and closed using 4-0 Monocryl and Dermabond. The patient was en route to Recovery in stable condition. All instrument counts, needle counts and lap counts were correct. Job ID: [id number]
== END 2019-08-27 11:30 | disposition home or self-care (01) ==
LOC: SDC 07:05
PROVIDERS: ATTEND Surgery
PROC: 0FT44ZZ Resection of Gallbladder, Percutaneous Endoscopic Approach (ICD-10-PCS; principal; 2019-08-27)
DX: K80.11 Calculus of gallbladder with chronic cholecystitis with obstruction (principal); I10 Essential (primary) hypertension; E78.5 Hyperlipidemia, unspecified; F32.9 Major depressive disorder, single episode, unspecified; Z79.82 Long term (current) use of aspirin; Z79.899 Other long term (current) drug therapy; Z88.5 Allergy status to narcotic agent
CPT/HCPCS: 88304; J0690; J2405; J3010

== ENCOUNTER 2019-10-06 15:32 | Outpatient (CLI) | payer MEDICARE ==
--- NOTE | 2019-10-06 15:52 | RAD ---
EXAM: XR Abdomen 2 View PROVIDED CLINICAL HISTORY: Gallstones COMPARISON: None FINDINGS: Visualized lung bases are clear. Bowel gas pattern is nonspecific. Surgical clips overlie the right u pper quadrant. Vascular calcifications and phleboliths overlie the pelvis. Degenerative changes are seen in the spine. IMPRESSION: 1. Nonspecific bowel gas pattern. 2. Surgical clips overlie the right upper quadrant.
== END 2019-10-06 15:33 | disposition home or self-care (01) ==
LOC: RAD 15:32
PROVIDERS: ATTEND Surgery
DX: K80.20 Calculus of gallbladder without cholecystitis without obstruction (principal); Z98.890 Other specified postprocedural states
CPT/HCPCS: 74019

== ENCOUNTER 2020-08-25 11:59 | Outpatient (CLI) | payer MEDICARE ==
--- NOTE | 2020-08-25 14:48 | RAD ---
EXAM: Left rib series with chest x-ray HISTORY: Rib pain COMPARISON: None FINDINGS: Single view of the chest shows a normal sized cardiomediastinal silhouette. Biapical pleur al thickening is present. Increased interstitial markings are seen. There is no evidence of consolidation, mass, or pleural effusion. Hardware seen in the cervical spine. Surgical clips are see n in the right axillary region. Multiple views of the left ribs shows no evidence of displaced rib fracture. No underlying pleural th ickening or pneumothorax are seen. IMPRESSION: 1. No evidence of displaced rib fracture. 2. No evidence of acute cardiopulmonary disease.
== END 2020-08-25 12:00 | disposition home or self-care (01) ==
LOC: BICRAD 11:59
PROVIDERS: ATTEND Family Medicine
DX: R07.81 Pleurodynia (principal)

== ENCOUNTER 2020-09-20 12:59 | Outpatient (CLI) | payer MEDICARE ==
--- NOTE | 2020-09-20 13:45 | MMO ---
Bilateral MAMMO Bilat Screen [facility]. CLINICAL HISTORY: Patient is 79 years old and is seen for screening. The patient has no family history of breast cancer. The patient has a history of malignant (generic) at age 60. 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 VIEWS: The views performed were: bilateral craniocaudal with tomosynthesis and bilateral mediolateral oblique with tomosynthesis. FILMS COMPARED: The present examination has been compared to prior imaging studies performed at [facility] on 07/05/2016, 07/31/2017, 08/05/2018 and 08/25/2019. This study has been interpreted with the assistance of computer-aided detection. MAMMOGRAM FINDINGS: There are scattered fibroglandular densities. There are stable benign appearing calcifications seen in both breasts. There are no suspicious masses, suspicious calcifications, or new areas of architectural distortion. IMPRESSION: THERE IS NO MAMMOGRAPHIC EVIDENCE OF MALIGNANCY. A ROUTINE FOLLOW-UP MAMMOGRAM IN 1 YEAR IS RECOMMENDED. THE RESULTS OF THIS EXAM WERE SENT TO THE PATIENT. ACR BI-RADS Category 2 - Benign finding MAMMOGRAPHY NOTE: 1. A negative mammogram report should not delay a biopsy if a dominant of clinically suspicious mass is present. 2. Approximately 10% to 15% of breast cancers are not detected by mammography. 3. Adenosis and dense breasts may obscure an underlying neoplasm. Reported by: JESSICA MORENO MD Electonically Signed: [id number]
== END 2020-09-20 13:00 | disposition home or self-care (01) ==
LOC: BICMAMMO 12:59
PROVIDERS: ATTEND Family Medicine
DX: Z12.31 Encounter for screening mammogram for malignant neoplasm of breast (principal); Z85.3 Personal history of malignant neoplasm of breast; Z98.890 Other specified postprocedural states
CPT/HCPCS: 77063; 77067

== ENCOUNTER 2021-09-21 11:02 | Outpatient (CLI) | payer MEDICARE | END 2021-09-21 11:03 | disposition home or self-care (01) | LOC: BICMAMMO 11:02 | PROVIDERS: ATTEND Family Medicine | DX: Z12.31 Encounter for screening mammogram for malignant neoplasm of breast (principal); Z85.3 Personal history of malignant neoplasm of breast; Z98.890 Other specified postprocedural states | CPT/HCPCS: 77063; 77067 ==

== ENCOUNTER 2022-10-24 13:19 | Outpatient (CLI) | payer MEDICARE | END 2022-10-24 13:20 | disposition home or self-care (01) | LOC: BICMAMMO 13:19 | PROVIDERS: ATTEND Family Medicine | DX: Z12.31 Encounter for screening mammogram for malignant neoplasm of breast (principal); R92.1 Mammographic calcification found on diagnostic imaging of breast; Z98.890 Other specified postprocedural states | CPT/HCPCS: 77063; 77067 ==

== ENCOUNTER 2023-07-19 11:23 | Inpatient (IN) | payer MEDICARE ==
[2023-07-19 11:39] LABS: #Eosinphils 0.1 thou/uL (0.0-0.7); #Monocytes 0.5 thou/uL (0.11-0.59); #Neutrophils 5.9 thou/uL (1.40-6.50); %Basophils 0.3 % (0.0-1.0); %Eosinophils 0.7 % (0.0-10.0); %Lymphocytes 13.6 % (21.0-51.0); %Monocytes 6.4 % (0.0-10.0); %Neutrophils 78.6 % (42.0-75.0); Hematocrit 42.5 % (36.0-47.0); Hemoglobin 14.1 g/dL (12.0-16.0); Mean Corpuscular HGB CONC 33.2 g/dL (32.0-36.0); Mean Corpuscular Hemoglobin 30.1 pg (27.0-31.0); Mean Corpuscular Volume 90.8 fl (78.0-98.0); Mean Platelet Volume 9.2 fL (7.4-10.4); Platelet Count 241 10x3/uL (130-400); RBC Distribution Width 12.7 % (11.5-14.5); Red Blood Cell (RBC) Count 4.68 mill/uL (4.20-5.40); White Blood Cell (WBC) Count 7.5 10x3/uL (4.8-10.8)
[2023-07-19 11:52] LABS: INR-International Normal Ratio 0.9; Prothrombin Time 12.9 sec (12.0-14.7)
[2023-07-19 11:58] LABS: ALT (SGPT) 13 U/L (8-55); AST (SGOT) 20 U/L (5-34); Albumin 4.5 g/dL (3.4-4.8); Alkaline Phosphatase 69 U/L (40-110); Anion Gap 17 mmol/L (10-20); BUN (Urea Nitrogen) 18 mg/dL (9.8-20.1); Bilirubin, Total 0.4 mg/dL (0.2-1.2); Calc. Creatinine Clearance 0 mL/min (70-130); Calcium 9.9 mg/dL (7.8-10.44); Carbon Dioxide 25 mmol/L (23-31); Chloride 101 mmol/L (98-107); Estimated GFR 66; Glucose 102 mg/dL (83-110); Potassium 4.7 mmol/L (3.5-5.1); Protein, Total 8.5 g/dL (5.8-8.1); Sodium 138 mmol/L (136-145)
[2023-07-19 12:21] LABS: Troponin I 0.011 ng/mL (< 0.028)
[2023-07-19 12:41] LABS: Bacteria/HPF None Seen HPF (None Seen); Bilirubin Negative (Negative); Blood, Urine Negative (Negative); CAUTI Indications for Culture Alt mental st,lethar; Clarity Clear (Clear); Glucose, Urine (Dipstick) Normal (Negative); Ketone, Urine Negative (Negative); Leukocyte Negative Leu/uL (Negative); Nitrite Negative (Negative); Protein, Urine (Dipstick) Negative (Neg-Trace); RBC/HPF 0-3 HPF (0-3); Specific Gravity, Urine 1.011 (1.002-1.036); Squamous Epithelial None Seen HPF (0-3); Urobilinogen Normal mg/dL (Less than 2); WBC/HPF 0-3 HPF (0-3)
[2023-07-19] MEDS ORDERED: Aspirin Chewable 81 MG TAB ONE (12:44)
[2023-07-19 12:50] LABS: Urine Culture Reflex No No
[2023-07-19] MEDS ORDERED: Ondansetron PF 4 MG/2 ML Vial IVP PRN (15:04)
[2023-07-19] MEDS ORDERED: Bisacodyl 5 MG TAB PO PRN (15:04)
[2023-07-19 15:15] VITALS: BMI 24.0
[2023-07-19] MEDS ORDERED: Iopamidol-370 76% 500 ML MDV (1 ML CHARGE) ONE ×2 (15:37)
[2023-07-19] MEDS: Atorvastatin Calcium 40 MG TAB PO SCH (19:57)
[2023-07-19] MEDS ORDERED: Melatonin 3 MG TAB PO SCH (22:00)
[2023-07-19] MEDS: Acetaminophen 325 MG TAB PO PRN (22:03)
[2023-07-20 06:07] LABS: #Eosinphils 0.1 thou/uL (0.0-0.7); #Monocytes 0.7 thou/uL (0.11-0.59); #Neutrophils 5.4 thou/uL (1.40-6.50); %Basophils 0.1 % (0.0-1.0); %Eosinophils 0.8 % (0.0-10.0); %Monocytes 9.4 % (0.0-10.0); %Neutrophils 73.6 % (42.0-75.0); Hematocrit 38.4 % (36.0-47.0); Hemoglobin 12.7 g/dL (12.0-16.0); Mean Corpuscular HGB CONC 33.1 g/dL (32.0-36.0); Mean Corpuscular Hemoglobin 30.2 pg (27.0-31.0); Mean Corpuscular Volume 91.2 fl (78.0-98.0); Mean Platelet Volume 9.4 fL (7.4-10.4); Platelet Count 233 10x3/uL (130-400); RBC Distribution Width 12.8 % (11.5-14.5); Red Blood Cell (RBC) Count 4.21 mill/uL (4.20-5.40); White Blood Cell (WBC) Count 7.3 10x3/uL (4.8-10.8)
[2023-07-20] MEDS ORDERED: Lorazepam 0.5 MG TAB PO PRN (06:10)
[2023-07-20 06:36] LABS: Anion Gap 14 mmol/L (10-20); BUN (Urea Nitrogen) 24 mg/dL (9.8-20.1); Calc. Creatinine Clearance 42 mL/min (70-130); Calcium 9.3 mg/dL (7.8-10.44); Carbon Dioxide 24 mmol/L (23-31); Cardiac Risk 4.3 (Less than 4.5); Chloride 102 mmol/L (98-107); Cholesterol 190 mg/dl (< 200 Desired); Estimated GFR 54; Glucose 112 mg/dL (83-110); HDL Cholesterol 44 mg/dL (>60 Neg Risk); LDL Cholesterol, Calculated 127 mg/dL; Potassium 4.3 mmol/L (3.5-5.1); Sodium 136 mmol/L (136-145); Triglycerides 95 mg/dL (Less than 150)
[2023-07-20] MEDS: Aspirin 81 mg Enteric Coated Tablet PO SCH (09:06)
[2023-07-20] MEDS ORDERED: Diazepam 2 MG TAB PO PRN (10:58)
[2023-07-20] MEDS: Acetaminophen 325 MG TAB PO PRN (13:13)
[2023-07-20] MEDS ORDERED: BuPROPion XL 150 MG ER.TAB PO SCH (17:30)
[2023-07-20] MEDS: Atorvastatin Calcium 40 MG TAB PO SCH (19:50)
[2023-07-20] MEDS: Melatonin 3 MG TAB PO PRN (21:31)
[2023-07-21 05:18] LABS: #Eosinphils 0.1 thou/uL (0.0-0.7); #Monocytes 0.7 thou/uL (0.11-0.59); #Neutrophils 4.4 thou/uL (1.40-6.50); %Basophils 0.2 % (0.0-1.0); %Eosinophils 1.1 % (0.0-10.0); %Lymphocytes 18.8 % (21.0-51.0); %Monocytes 11.3 % (0.0-10.0); %Neutrophils 68.3 % (42.0-75.0); Hematocrit 37.6 % (36.0-47.0); Hemoglobin 12.5 g/dL (12.0-16.0); Mean Corpuscular HGB CONC 33.2 g/dL (32.0-36.0); Mean Corpuscular Hemoglobin 29.7 pg (27.0-31.0); Mean Corpuscular Volume 89.3 fl (78.0-98.0); Mean Platelet Volume 9.5 fL (7.4-10.4); Platelet Count 211 10x3/uL (130-400); RBC Distribution Width 12.8 % (11.5-14.5); Red Blood Cell (RBC) Count 4.21 mill/uL (4.20-5.40); White Blood Cell (WBC) Count 6.5 10x3/uL (4.8-10.8)
[2023-07-21 05:37] LABS: Anion Gap 13 mmol/L (10-20); BUN (Urea Nitrogen) 22 mg/dL (9.8-20.1); Calc. Creatinine Clearance 52 mL/min (70-130); Carbon Dioxide 25 mmol/L (23-31); Chloride 101 mmol/L (98-107); Estimated GFR 68; Glucose 113 mg/dL (83-110); Potassium 3.8 mmol/L (3.5-5.1); Sodium 135 mmol/L (136-145)
[2023-07-21] MEDS ORDERED: Magnevist 469MG/ML 20 ML VIAL ONE (08:59)
[2023-07-21] MEDS ORDERED: CRANBERRY 500 MG PO SCH (09:00)
[2023-07-21] MEDS: Floranex 1 GM Packet PO SCH (09:05)
[2023-07-21] MEDS: Ascorbic Acid 500 mg Chewable Tablet PO SCH (09:05)
[2023-07-21] MEDS: Cholecalciferol 1,000 UNITS (25 MCG) TAB PO SCH (09:06)
[2023-07-21] MEDS: Cyanocobalamin (Vitamin B-12) 1,000 MCG TAB PO SCH (09:06)
[2023-07-21] MEDS: Vitamin E 400 UNITS CAP PO SCH (09:06)
[2023-07-21] MEDS: Aspirin 81 mg Enteric Coated Tablet PO SCH (09:06)
[2023-07-21] MEDS: Atorvastatin Calcium 40 MG TAB PO SCH (20:55)
[2023-07-21] MEDS: Lorazepam 0.5 MG TAB PO SCH (20:55)
[2023-07-21] MEDS: Acetaminophen 325 MG TAB PO PRN (21:40)
[2023-07-21] MEDS: Melatonin 3 MG TAB PO PRN (21:40)
[2023-07-22 05:36] LABS: #Eosinphils 0.1 thou/uL (0.0-0.7); #Monocytes 0.9 thou/uL (0.11-0.59); #Neutrophils 4.2 thou/uL (1.40-6.50); %Basophils 0.3 % (0.0-1.0); %Eosinophils 1.1 % (0.0-10.0); %Lymphocytes 18.4 % (21.0-51.0); %Monocytes 13.5 % (0.0-10.0); %Neutrophils 66.4 % (42.0-75.0); Hematocrit 38.2 % (36.0-47.0); Hemoglobin 12.3 g/dL (12.0-16.0); Mean Corpuscular HGB CONC 32.2 g/dL (32.0-36.0); Mean Corpuscular Hemoglobin 29.8 pg (27.0-31.0); Mean Corpuscular Volume 92.5 fl (78.0-98.0); Mean Platelet Volume 9.3 fL (7.4-10.4); Platelet Count 203 10x3/uL (130-400); RBC Distribution Width 12.7 % (11.5-14.5); Red Blood Cell (RBC) Count 4.13 mill/uL (4.20-5.40); White Blood Cell (WBC) Count 6.4 10x3/uL (4.8-10.8)
[2023-07-22 06:03] LABS: Anion Gap 12 mmol/L (10-20); BUN (Urea Nitrogen) 23 mg/dL (9.8-20.1); Calc. Creatinine Clearance 57 mL/min (70-130); Calcium 9.2 mg/dL (7.8-10.44); Carbon Dioxide 24 mmol/L (23-31); Chloride 106 mmol/L (98-107); Estimated GFR 77; Glucose 102 mg/dL (83-110); Potassium 3.9 mmol/L (3.5-5.1); Sodium 138 mmol/L (136-145)
[2023-07-22] MEDS: Floranex 1 GM Packet PO SCH (09:49)
[2023-07-22] MEDS: Ascorbic Acid 500 mg Chewable Tablet PO SCH (09:49)
[2023-07-22] MEDS: Vitamin E 400 UNITS CAP PO SCH (09:50)
[2023-07-22] MEDS: Cyanocobalamin (Vitamin B-12) 1,000 MCG TAB PO SCH (09:50)
[2023-07-22] MEDS: Aspirin 81 mg Enteric Coated Tablet PO SCH (09:50)
[2023-07-22] MEDS: Lorazepam 0.5 MG TAB PO SCH (09:50)
[2023-07-22] MEDS: Cholecalciferol 1,000 UNITS (25 MCG) TAB PO SCH (09:50)
[2023-07-22 11:38] VITALS: BP 137/84; TEMP 97.8
== END 2023-07-22 15:52 | disposition home or self-care (01) | DRG 65 ==
LOC: ERS 11:23 → 2SW 13:06 → OBSVTOIN 07-21 13:16
PROVIDERS: ADMIT Internal Medicine; ATTEND Internal Medicine
DX: I63.9 Cerebral infarction, unspecified (principal); E87.1 Hypo-osmolality and hyponatremia; I10 Essential (primary) hypertension; E78.5 Hyperlipidemia, unspecified; F41.9 Anxiety disorder, unspecified; F32.A Depression, unspecified; Z88.5 Allergy status to narcotic agent; Z79.899 Other long term (current) drug therapy; Z85.3 Personal history of malignant neoplasm of breast; Z90.710 Acquired absence of both cervix and uterus; Z98.890 Other specified postprocedural states; Z79.82 Long term (current) use of aspirin
CPT/HCPCS: 36415; 36416; 70450; 70496; 70498; 70553; 71045; 80048; 80053; 80061; 81001; 84484; 85025; 85610; 85730; 93005; 93306; 96372; A9579; G0378; J1650; Q9967

== ENCOUNTER 2023-08-13 13:20 | Emergency (ER) | payer MEDICARE, OTHER ==
[~2023-08-13 13:20] MED LIST: Iopamidol-370 76% 500 ML MDV (1 ML CHARGE) ONE
[2023-08-13 13:51] LABS: #Monocytes 0.4 thou/uL (0.11-0.59); #Neutrophils 3.1 thou/uL (1.40-6.50); %Basophils 0.2 % (0.0-1.0); %Eosinophils 0.4 % (0.0-10.0); %Lymphocytes 21.8 % (21.0-51.0); %Monocytes 9.2 % (0.0-10.0); %Neutrophils 68.2 % (42.0-75.0); Hemoglobin 12.7 g/dL (12.0-16.0); Mean Corpuscular HGB CONC 33.4 g/dL (32.0-36.0); Mean Corpuscular Hemoglobin 30.3 pg (27.0-31.0); Mean Corpuscular Volume 90.7 fl (78.0-98.0); Mean Platelet Volume 9.3 fL (7.4-10.4); Platelet Count 237 10x3/uL (130-400); RBC Distribution Width 12.7 % (11.5-14.5); Red Blood Cell (RBC) Count 4.19 mill/uL (4.20-5.40); White Blood Cell (WBC) Count 4.6 10x3/uL (4.8-10.8)
[2023-08-13 14:09] LABS: PTT 29.9 sec (22.9-36.1); Prothrombin Time 13.8 sec (12.0-14.7)
[2023-08-13 14:18] LABS: ALT (SGPT) 14 U/L (8-55); AST (SGOT) 20 U/L (5-34); Albumin 4.6 g/dL (3.4-4.8); Alkaline Phosphatase 66 U/L (40-110); Anion Gap 13 mmol/L (10-20); BUN (Urea Nitrogen) 12 mg/dL (9.8-20.1); Bilirubin, Total 0.3 mg/dL (0.2-1.2); Calc. Creatinine Clearance 0 mL/min (70-130); Calcium 9.9 mg/dL (7.8-10.44); Carbon Dioxide 26 mmol/L (23-31); Chloride 101 mmol/L (98-107); Estimated GFR 69; Globulin 3.6 g/dL (2.4-3.5); Glucose 121 mg/dL (83-110); Magnesium 2.1 mg/dL (1.6-2.6); Potassium 3.9 mmol/L (3.5-5.1); Protein, Total 8.2 g/dL (5.8-8.1); Sodium 136 mmol/L (136-145)
[2023-08-13 14:22] LABS: Troponin I Less than 0.010 ng/mL (< 0.028)
[2023-08-13 14:47] LABS: Bacteria/HPF None Seen HPF (None Seen); Bilirubin Negative (Negative); Blood, Urine Negative (Negative); CAUTI Indications for Culture Alt mental st,lethar; Clarity Clear (Clear); Glucose, Urine (Dipstick) Normal (Negative); Ketone, Urine Negative (Negative); Leukocyte Negative Leu/uL (Negative); Nitrite Negative (Negative); Protein, Urine (Dipstick) Negative (Neg-Trace); RBC/HPF 0-3 HPF (0-3); Specific Gravity, Urine 1.013 (1.002-1.036); Squamous Epithelial 0-3 HPF (0-3); Urobilinogen Normal mg/dL (Less than 2); WBC/HPF 0-3 HPF (0-3); pH, Urine 7.5 (5.0-9.0)
[2023-08-13 14:51] LABS: Urine Culture Reflex No No
== END 2023-08-13 18:00 | disposition home or self-care (01) ==
LOC: ERS 13:20
DX: R20.2 Paresthesia of skin (principal); I63.9 Cerebral infarction, unspecified; I10 Essential (primary) hypertension; Z79.82 Long term (current) use of aspirin
CPT/HCPCS: 36415; 36416; 70450; 70496; 70498; 70551; 80053; 81001; 83605; 83735; 83880; 84484; 85025; 85610; 85730; 93005; Q9967

== ENCOUNTER 2023-12-03 10:52 | Outpatient (CLI) | payer MEDICARE, OTHER | END 2023-12-03 10:53 | disposition home or self-care (01) | LOC: SCSRAD 10:52 | PROVIDERS: ATTEND Family Medicine | DX: M54.50 Low back pain, unspecified (principal); M47.816 Spondylosis without myelopathy or radiculopathy, lumbar region; M47.817 Spondylosis without myelopathy or radiculopathy, lumbosacral region | CPT/HCPCS: 72100 ==

== ENCOUNTER 2024-01-08 11:02 | Outpatient (CLI) | payer MEDICARE, OTHER | END 2024-01-08 11:03 | disposition home or self-care (01) | LOC: BICMAMMO 11:02 | PROVIDERS: ATTEND Family Medicine | DX: Z12.31 Encounter for screening mammogram for malignant neoplasm of breast (principal); Z85.3 Personal history of malignant neoplasm of breast; Z98.890 Other specified postprocedural states | CPT/HCPCS: 77063; 77067 ==